=== PATIENT | male | born 1955 | race African-American/Black ===

== ENCOUNTER 2016-12-15 16:32 | Emergency (ER) | payer OTHER ==
[~2016-12-15] VITALS: Ht 180.3 cm; Wt 68.0 kg
[2016-12-15] MEDS ORDERED: UNK HTN MED PO (16:40)
[2016-12-15 20:22] VITALS: BP 135/82
== END 2016-12-15 20:45 | disposition home or self-care (01) ==
LOC: EMS 16:34
DX: S09.90XA Unspecified injury of head, initial encounter (principal); M79.671 Pain in right foot; I10 Essential (primary) hypertension; E78.00 Pure hypercholesterolemia, unspecified; K21.9 Gastro-esophageal reflux disease without esophagitis; F17.210 Nicotine dependence, cigarettes, uncomplicated; V43.52XA Car driver injured in collision with other type car in traffic accident, initial encounter; Y93.89 Activity, other specified; Y92.89 Other specified places as the place of occurrence of the external cause; Y99.8 Other external cause status
CPT/HCPCS: 99283

== ENCOUNTER 2019-01-21 12:34 | Emergency (ER) | payer OTHER ==
[~2019-01-21] VITALS: Ht 180.3 cm; Wt 61.4 kg
[~2019-01-21 12:34] MED LIST: UNK HTN MED PO
[2019-01-21] MEDS ORDERED: CHOLESTEROL MED PO (12:46)
[2019-01-21] MEDS ORDERED: KETOROLAC TROMETHAMINE 30 MG/ML VIAL IM ONE (13:00)
[2019-01-21 15:02] VITALS: BP 120/77
== END 2019-01-21 15:10 | disposition home or self-care (01) ==
LOC: EMS 12:35
DX: M79.672 Pain in left foot (principal); M54.2 Cervicalgia; F17.210 Nicotine dependence, cigarettes, uncomplicated; K21.9 Gastro-esophageal reflux disease without esophagitis; I10 Essential (primary) hypertension; E78.00 Pure hypercholesterolemia, unspecified
CPT/HCPCS: 73630; 96372; 99283; 99406; J1885

== ENCOUNTER 2019-02-22 15:06 | Emergency (ER) | payer OTHER ==
[~2019-02-22] VITALS: Ht 180.3 cm; Wt 60.0 kg
[~2019-02-22 15:06] MED LIST changes: +CHOLESTEROL MED PO
[2019-02-22] MEDS: PENICILLIN V POTASSIUM 500 MG TABLET PO ONE (16:48)
[2019-02-22] MEDS: HYDROCODONE/ACETAMINOPHEN 5-325 MG TABLET PO ONE (16:48)
[2019-02-22 17:00] VITALS: BP 141/82
== END 2019-02-22 17:00 | disposition home or self-care (01) ==
LOC: EMS 15:08
DX: K04.7 Periapical abscess without sinus (principal); F17.210 Nicotine dependence, cigarettes, uncomplicated; K21.9 Gastro-esophageal reflux disease without esophagitis; E78.00 Pure hypercholesterolemia, unspecified; I10 Essential (primary) hypertension
CPT/HCPCS: 99406

== ENCOUNTER 2020-03-26 12:41 | Emergency (ER) | payer OTHER ==
[~2020-03-26] VITALS: Ht 175.3 cm; Wt 77.3 kg
[~2020-03-26 12:41] MED LIST changes: -CHOLESTEROL MED PO; +FERR-89 PO; +PANT-31 PO; -UNK HTN MED PO
[2020-03-26] MEDS ORDERED: PERTUSS(ACELL),DIPH,TET VAC/PF 0.5 ML VIAL IM ONE (13:45)
[2020-03-26] MEDS: IBUPROFEN 600 MG TABLET PO ONE ×2 (14:20→14:24)
[2020-03-26] MEDS ORDERED: ACETAMINOPHEN 325 MG TABLET PO ONE (14:30)
[2020-03-26 14:40] VITALS: BP 117/73
== END 2020-03-26 14:47 | disposition home or self-care (01) ==
LOC: EMS 12:47
DX: S61.511A Laceration without foreign body of right wrist, initial encounter (principal); I10 Essential (primary) hypertension; E78.00 Pure hypercholesterolemia, unspecified; K21.9 Gastro-esophageal reflux disease without esophagitis; F17.210 Nicotine dependence, cigarettes, uncomplicated; Z79.899 Other long term (current) drug therapy; W45.8XXA Other foreign body or object entering through skin, initial encounter; Y93.89 Activity, other specified; Y92.89 Other specified places as the place of occurrence of the external cause; Y99.8 Other external cause status
CPT/HCPCS: 90471; 90715

== ENCOUNTER 2023-02-04 08:30 | Emergency (ER) | payer MEDICARE, OTHER ==
[~2023-02-04] VITALS: Ht 180.3 cm; Wt 65.9 kg
[~2023-02-04 08:30] MED LIST changes: +BP med PO; -FERR-89 PO; +FERR325T27 PO
[2023-02-04 08:31] VITALS: BP 108/65; PULSE 68; RESP 16; TEMP 97.8
[2023-02-04] MEDS ORDERED: DOXY-354 PO (09:08)
== END 2023-02-04 09:17 | disposition home or self-care (01) ==
LOC: EMS 08:31
DX: L02.512 Cutaneous abscess of left hand (principal); I10 Essential (primary) hypertension; E78.00 Pure hypercholesterolemia, unspecified; K21.9 Gastro-esophageal reflux disease without esophagitis; F17.210 Nicotine dependence, cigarettes, uncomplicated
CPT/HCPCS: 99283; Z7502

== ENCOUNTER 2025-01-28 18:27 | Emergency (ER) | payer MEDICARE, OTHER ==
[~2025-01-28] VITALS: Ht 180.3 cm; Wt 61.0 kg
[~2025-01-28 18:27] MED LIST changes: +DOXY-354 PO
[2025-01-28 18:33] VITALS: BP 122/70; PULSE 73; RESP 18; TEMP 97.9; O2SAT 99
== END 2025-01-28 20:50 | disposition left against medical advice (07) ==
LOC: EMS 18:27
DX: M79.673 Pain in unspecified foot (principal); Z53.21 Procedure and treatment not carried out due to patient leaving prior to being seen by health care provider

== ENCOUNTER 2025-02-03 16:34 | Emergency (ER) | payer MEDICARE, OTHER ==
[~2025-02-03] VITALS: Ht 180.3 cm; Wt 61.4 kg
[2025-02-03 16:38] VITALS: TEMP 97.5
[2025-02-03 17:00] VITALS: BP 136/76; PULSE 75; RESP 17; O2SAT 96
[2025-02-03] MEDS ORDERED: ACET-66 PO (17:44)
[2025-02-03] MEDS ORDERED: CEPH-558 PO (17:44)
[2025-02-03] MEDS: PERTUSS(ACELL),DIPH,TET/PF 0.5 ML SYRINGE [ADULT] IM. ONE (17:51)
== END 2025-02-03 18:15 | disposition home or self-care (01) ==
LOC: EMS 16:43
DX: S91.331A Puncture wound without foreign body, right foot, initial encounter (principal); K21.9 Gastro-esophageal reflux disease without esophagitis; I10 Essential (primary) hypertension; E78.00 Pure hypercholesterolemia, unspecified; F17.210 Nicotine dependence, cigarettes, uncomplicated; Z98.890 Other specified postprocedural states; Z79.899 Other long term (current) drug therapy; W45.0XXA Nail entering through skin, initial encounter; Y93.89 Activity, other specified; Y92.89 Other specified places as the place of occurrence of the external cause; Y99.8 Other external cause status
CPT/HCPCS: 90471; 90715; 99283

== ENCOUNTER 2025-03-05 07:39 | Emergency (ER) | payer MEDICARE, OTHER ==
[~2025-03-05] VITALS: Ht 180.3 cm; Wt 61.4 kg
[~2025-03-05 07:39] MED LIST changes: +ACET-66 PO; +CEPH-558 PO; -DOXY-354 PO
[2025-03-05 07:47] VITALS: BP 115/81; PULSE 86; RESP 16; TEMP 97.3; O2SAT 94
[2025-03-05] MEDS: CEPHALEXIN MONOHYDRATE 500 MG CAPSULE PO ONE (08:30)
[2025-03-05] MEDS ORDERED: CEPH-558 PO (08:53)
[2025-03-05] MEDS ORDERED: DIPH50CA39 PO (08:53)
[2025-03-06] MEDS ORDERED: AMOX-457 PO (05:42)
[2025-03-06] MEDS ORDERED: SULF-261 PO (05:42)
== END 2025-03-05 08:55 | disposition home or self-care (01) ==
LOC: EMS 07:39
DX: T63.301A Toxic effect of unspecified spider venom, accidental (unintentional), initial encounter (principal); H57.12 Ocular pain, left eye; E78.00 Pure hypercholesterolemia, unspecified; I10 Essential (primary) hypertension; K21.9 Gastro-esophageal reflux disease without esophagitis; F17.210 Nicotine dependence, cigarettes, uncomplicated; Z98.890 Other specified postprocedural states; Z79.899 Other long term (current) drug therapy; Y92.89 Other specified places as the place of occurrence of the external cause
CPT/HCPCS: 99283